=== PATIENT | male | born 1970 | race Caucasian/White ===

== ENCOUNTER 2016-12-12 13:14 | Emergency (ER) | payer SELFPAY ==
[2016-12-12 13:47] VITALS: BP 113/70
--- NOTE | 2016-12-12 14:10 | UC ---
Ear Complaint HPI - HPI Summary HPI Summary: left ear pain x days hurts to chew or wiggle ear no fever no URI symptoms - History of Current Complaint Chief Complaint: UCEar Stated Complaint: EARACHE, HEADACHE Time Seen by Provider: 12/12/16 13:54 Hx Obtained From: Patient Onset/Duration: Gradual Onset, Lasting Hours Severity Initially: Moderate Severity Currently: Mild Pain Intensity: 4 Pain Scale Used: 0-10 Numeric Associated Signs/Symptoms: Positive: Hearing Loss - Allergies/Home Medications Allergies/Adverse Reactions: Allergies Allergy/AdvReac Type Severity Reaction Status Date / Time Environmental Allergy Itching Uncoded 12/12/16 13:46 PMH/Surg Hx/FS Hx/Imm Hx Previously Healthy: Yes - Surgical History Surgical History: Yes Surgery Procedure, Year, and Place: Appendectomy - post op infection, right knee arthroscopy 1998 - Family History Known Family History: Positive: Hypertension - Social History Alcohol Use: Rare Substance Use Type: None Smoking Status (MU): Never Smoked Tobacco Review of Systems Constitutional: Negative Skin: Negative Eyes: Negative ENT: Ear Ache Respiratory: Negative Cardiovascular: Negative Gastrointestinal: Negative Genitourinary: Negative Motor: Negative Neurovascular: Negative Musculoskeletal: Negative Neurological: Negative Psychological: Negative All Other Systems Reviewed And Are Negative: Yes Physical Exam Triage Information Reviewed: Yes Vital Signs: Initial Vital Signs Temp 98.0 F 12/12/16 13:43 Pulse 60 12/12/16 13:43 Resp 16 12/12/16 13:43 BP 113/70 12/12/16 13:43 Pulse Ox 96 12/12/16 13:43 Vital Signs Reviewed: Yes Eyes: Positive: Conjunctiva Clear ENT: Positive: Hearing grossly normal, Nasal congestion, Other: - left EAC swollen, left tragal tenderness. Negative: TMs normal - cerumen right Neck: Positive: Supple, Nontender Respiratory: Positive: Lungs clear, Normal breath sounds, No respiratory distress, No accessory muscle use Cardiovascular: Positive: RRR, No Murmur Musculoskeletal: Positive: Strength Intact, ROM Intact Neurological: Positive: Alert Psychological Exam: Normal Skin Exam: Normal Ear Complaint Course/Dx - Differential Dx/Diagnosis Provider Diagnoses: left otitis externa Discharge - Discharge Plan Condition: Stable Disposition: HOME Prescriptions: Neomyc/Polym/HC 1% OTIC SUSP* [Cortisporin Otic Susp 1%*] 4 drop LEFT EAR QID # 1 btl Patient Education Materials: Otitis Externa (ED) Referrals: Carolyn Daugherty MD [Primary Care Provider] - Additional Instructions: recheck for new or worsening symptoms or if not better in 7 days
== END 2016-12-12 14:20 | disposition home or self-care (01) ==
LOC: UCEAST 13:14
DX: H60.92 Unspecified otitis externa, left ear (principal)
CPT/HCPCS: 99212; G0463